=== PATIENT | male | born 1960 ===

== ENCOUNTER 2023-11-19 07:37 | Emergency (ER) | payer OTHER, SELFPAY ==
[2023-11-19] VITALS (19 sets, daily range): BP systolic 99–130; BP diastolic 59–79; PULSE 66–154; RESP 12–22; TEMP 36.8; O2SAT 93–98; BMI 34.5
--- NOTE | 2023-11-19 08:05 | ED.ARRPALP ---
HPI - Arrhythmia/Palpitations General Chief Complaint: Arrhythmia/Palpitations Stated Complaint: irregular heart beat per pt Time Seen by Provider: 11/19/23 07:38 Source: patient and family Mode of arrival: Ambulatory History of Present Illness HPI narrative: 63-year-old male with history of atrial fibrillation presents by private vehicle from home for fast heart rate since approximately 430 today. Patient got up to use the restroom and felt like his heart was beating rapidly with palpitations. He has been on 25 mg b.i.d. atenolol, 5 mg b.i.d. Eliquis for the last several years with good control of his AFib. He denies any recent medication changes. Related Data Allergies Allergy/AdvReac Type Severity Reaction Status Date / Time Sulfa (Sulfonamide Allergy Verified 11/19/23 07:59 Antibiotics) amoxicillin AdvReac Verified 11/19/23 07:59 erythromycin base AdvReac Verified 11/19/23 07:59 Penicillins AdvReac Verified 11/19/23 07:59 Review of Systems Review of Systems Narrative: See HPI Patient History Social History Smoking Status: Never smoker Smoking Status: Never smoker alcohol intake frequency: 0-2 drinks per day Substance Use Type: does not use Exam Initial Vital Signs Initial Vital Signs: Vital Signs Pulse Rate 154 H 11/19/23 07:44 Respiratory Rate 20 11/19/23 07:44 Pulse Oximetry 98 11/19/23 07:44 Const: Awake, alert, no acute distress, nontoxic appearing Cardiac: Tachycardia, irregularly irregular rhythm RESP: unlabored, clear bilaterally, no wheezing GI: Soft, nontender, nondistended, no rebound, no guarding MSK: Atraumatic, full range of motion, pulses equal Skin: Warm, Dry, intact, no rashes Neuro: AO x3, CN II-XII grossly intact, moves all extremities Procedures Cardioversion Time of Cardioversion: 08:28 Consent Signed: Yes Indication: Atrial fibrillation with RVR Stability: Stable Number of attempts (shocks): 1 Joules used: 150 Cardiac rhythm post-cardioversion: Normal sinus rhythm Procedural Sedation Consent signed: Yes Time out performed: Yes Indication: cardioversion ASA Class: III Mallampati Airway Classification: Class III Time of Last PO Intake: 18:00 Preparation: cardiac sonographer applied, pulse oximeter, capnometry used, supplemental O2 applied, suction/airway equipment at bedside and IV secured IV Propofol dose (mg): 80 Intraservice time/total sedation time (min): 10 ED Sedation Level: Moderate (Concious) Patient Tolerated Procedure: Well and No complications Complications: Respiratory Depression-Repositioning Required Course Orders Ordered: ED Orders 11/19/23 07:56 Complete Blood Count AUTO DIFF Stat Comprehensive Metabolic Panel Stat Lipase Stat Magnesium Stat PTT Partial Thromboplastin Harjinder Stat Prothrombin Time INR Stat TSH [Thyroid Stimulating Hormone] Stat Troponin & CK Cardiac Panel Stat 11/19/23 08:02 EKG-12 Lead Stat 11/19/23 09:06 EKG-12 Lead Stat Discontinued Medications Propofol (Propofol 200 Mg/20 Ml Vial) 150 mg IV NOW ONE Stop: 11/19/23 08:05 Last Admin: 11/19/23 08:29 Dose: 80 mg Documented By: SERGIO Vital Signs Vital signs: Vital Signs - 8 hr 11/19/23 08:30 11/19/23 08:30 11/19/23 08:32 Pulse Rate 135 H Respiratory Rate 22 Blood Pressure 108/62 110/68 Pulse Oximetry 96 Oxygen Delivery Method Room Air 11/19/23 08:32 11/19/23 08:35 11/19/23 08:35 Pulse Rate 80 79 Respiratory Rate 18 20 Blood Pressure 106/63 Pulse Oximetry 93 97 Oxygen Delivery Method Room Air 11/19/23 08:38 11/19/23 08:40 11/19/23 08:40 Pulse Rate 149 H 75 Respiratory Rate 18 16 Blood Pressure 99/59 L Pulse Oximetry 97 Oxygen Delivery Method 11/19/23 08:45 11/19/23 08:45 11/19/23 08:50 Pulse Rate 72 Respiratory Rate 17 Blood Pressure 100/63 104/67 Pulse Oximetry 96 Oxygen Delivery Method Room Air 11/19/23 08:50 11/19/23 08:55 11/19/23 08:55 Pulse Rate 72 67 Respiratory Rate 12 19 Blood Pressure 103/66 Pulse Oximetry 95 94 Oxygen Delivery Method Room Air 11/19/23 09:00 11/19/23 09:00 11/19/23 09:05 Pulse Rate 66 Respiratory Rate 16 Blood Pressure 107/67 116/66 Pulse Oximetry 96 Oxygen Delivery Method Room Air 11/19/23 09:05 11/19/23 09:10 11/19/23 09:10 Pulse Rate 67 68 Respiratory Rate 18 21 Blood Pressure 112/67 Pulse Oximetry 96 97 Oxygen Delivery Method Room Air 11/19/23 09:15 11/19/23 09:15 11/19/23 09:20 Pulse Rate 66 Respiratory Rate 21 Blood Pressure 106/67 106/66 Pulse Oximetry 96 Oxygen Delivery Method 11/19/23 09:20 Pulse Rate 66 Respiratory Rate 19 Blood Pressure Pulse Oximetry 98 Oxygen Delivery Method Room Air MDM - Arrhythmia/Palpitations Differential Diagnosis Differential diagnosis: Likely palpitations, anxiety and sinus tachycardia Lab Data 11/19/23 07:56 11/19/23 07:56 Labs: Lab Results 11/19/23 Range/Units 07:56 WBC 10.0 (4.5-11.0) X10^3/uL RBC 5.38 (4.5-5.9) X10^6/uL Hgb 15.5 (13.5-17.5) g/dL Hct 45.4 (41-53) % MCV 84.3 (80-100) fL MCH 28.7 (26-34) PG MCHC 34.1 (30-36) % RDW 14.4 (11.6-14.8) % Plt Count 355 (150-400) X10^3/uL Neut % (Auto) 74.2 (50-75) % Lymph % (Auto) 15.9 L (25-40) % Mathews % (Auto) 6.6 (3-14) % Eos % (Auto) 1.8 L (2-4) % Baso % (Auto) 1.5 (0-2) % Neut # (Auto) 7400 H (8003-8203) /uL Lymph # (Auto) 1600 (9992-5491) /uL Mathews # (Auto) 700 (0-900) /uL Eos # (Auto) 200 (0-450) /uL Baso # (Auto) 100 (0-100) /uL PT 12.0 (9.4-12.5) SECONDS INR 1.0 (0.9-1.3) APTT 43 H (25.1-36.5) SECONDS Sodium 139 (137-145) mmol/L Potassium 4.5 (3.4-5.1) mmol/L Chloride 106 (98-107) mmol/L Carbon Dioxide 23 (22-32) mmol/L BUN 14 (9-20) mg/dL Creatinine 0.79 (0.66-1.25) mg/dL Estimated GFR > 60 (>60) mL/min BUN/Creatinine Ratio 17.7 (6-22) Glucose 197 H (80-110) mg/dL Calcium 9.3 (8.4-10.2) mg/dL Magnesium 1.9 (1.6-2.3) mg/dL Total Bilirubin 0.7 (0.2-1.3) mg/dL AST 27 (17-59) IU/L ALT 30 (<50) IU/L Alkaline Phosphatase 84 (38-126) U/L Total Creatine Kinase 103 (55-170) U/L Troponin I < 0.012 (0.01-0.034) ng/mL Total Protein 8.0 (6.3-8.2) g/dL Albumin 4.8 (3.5-5.0) g/dL Globulin 3.2 (1.7-4.1) g/dL Albumin/Globulin Ratio 1.5 (1.0-2.8) Lipase 50 (23-300) U/L TSH 1.52 (0.47-4.68) uIU/mL MDM Narrative Medical decision making narrative: Atrial fibrillation with RVR. Known history of AFib, he was anticoagulated on Eliquis and has not missed any doses. Laboratory work shows no acute electrolyte abnormalities. Troponin undetectable, EKG nonischemic. Patient and consent to electric cardioversion. Patient cardioverted after single attempt at 150 joules synchronized. Subsequent rhythm normal sinus rhythm at 60-70 beats per minute. Repeat EKG shows no ischemia. Call placed to patient's cardiology clinic at [facility], spoke with on-call physician, who recommended no medication changes at this time, but did recommend follow up in clinic to discuss potential options. Patient and informed of lab, imaging findings as well as cardiology recommendations. They are in agreement with the plan. ED return precautions discussed at bedside Discharge Plan Departure Patient Disposition: Home Clinical Impression: Atrial fibrillation with RVR Instructions: DI for Atrial Fibrillation Activity Restrictions/Additional Instructions: After speaking to your finisher operator's office they do not recommend any medication changes right now. Continue all of your medications as prescribed. Call your finisher operator's office for follow up appointment. Stand Alone Forms: Patient Portal/API
[2023-11-19 08:13] LABS: Add Manual Diff / Slide Review NO; Basophils Absolute Auto 100 /uL (0-100); Basophils Percent Auto 1.5 % (0-2); Eosinophils Absolute Auto 200 /uL (0-450); Eosinophils Percent Auto 1.8 % (2-4); Hematocrit 45.4 % (41-53); Hemoglobin 15.5 g/dL (13.5-17.5); Lymphocytes Absolute Auto 1600 /uL (1100-4500); Lymphocytes Percent Auto 15.9 % (25-40); Mean Corpuscular HGB Conc 34.1 % (30-36); Mean Corpuscular Hemoglobin 28.7 PG (26-34); Mean Corpuscular Volume 84.3 fL (80-100); Monocytes Absolute Auto 700 /uL (0-900); Monocytes Percent Auto 6.6 % (3-14); Neutrophils Absolute Auto 7400 /uL (1500-7000); Neutrophils Percent Auto 74.2 % (50-75); Platelet Count 355 X10^3/uL (150-400); Red Blood Cell Count 5.38 X10^6/uL (4.5-5.9); Red Cell Distribution Width 14.4 % (11.6-14.8)
[2023-11-19 08:14] LABS: PTT Partial Thromboplastin Tim 43 SECONDS (25.1-36.5)
[2023-11-19 08:16] LABS: Alanine Aminotransferase 30 IU/L (<50); Albumin 4.8 g/dL (3.5-5.0); Albumin Globulin Ratio 1.5 (1.0-2.8); Alkaline Phosphatase 84 U/L (38-126); Aspartate Aminotransferase 27 IU/L (17-59); BUN Creatinine Ratio 17.7 (6-22); Bilirubin Total 0.7 mg/dL (0.2-1.3); Blood Urea Nitrogen 14 mg/dL (9-20); Calcium 9.3 mg/dL (8.4-10.2); Carbon Dioxide 23 mmol/L (22-32); Chloride 106 mmol/L (98-107); Creatine Kinase 103 U/L (55-170); Estimated Glomerular Filt Rate > 60 mL/min (>60); Globulin 3.2 g/dL (1.7-4.1); Glucose 197 mg/dL (80-110); HEMOLYSIS < 15 (0-50); Lipase 50 U/L (23-300); Magnesium 1.9 mg/dL (1.6-2.3); Potassium 4.5 mmol/L (3.4-5.1); Sodium 139 mmol/L (137-145)
[2023-11-19 08:28] LABS: Troponin I < 0.012 ng/mL (0.01-0.034)
[2023-11-19] MEDS: propofoL 200 MG/20 ML VIAL 150 MG IV (08:29)
[2023-11-19 09:20] LABS: Thyroid Stimulating Hormone 1.52 uIU/mL (0.47-4.68)
== END 2023-11-19 09:30 | disposition home or self-care (01) ==
PROVIDERS: Emergency Provider Emergency Medicine
DX: I48.20 Chronic atrial fibrillation, unspecified (principal); R00.2 Palpitations; Z79.01 Long term (current) use of anticoagulants
CPT/HCPCS: 36415; 80053; 82550; 83690; 83735; 84443; 84484; 85025; 85610; 85730; 92960; 93005; 93010; 99152; 99285; J2704